=== PATIENT | male | born 1980 | race Caucasian/White ===

== ENCOUNTER → 2017-11-17 | Outpatient (CLI) | payer BC ==
[~2017-11-17] MED LIST: CETI10CA PO; FLT05NA16 NSEACH; HYDR-34 PO; HYDR-3583 PO; NF-ESOM40C
--- NOTE | 2017-11-17 10:00 | Diagnostic Imaging Report ---
PROCEDURE: MRI lumbar spine. TECHNIQUE: Multiplanar, multisequence MRI of the lumbar spine was performed without contrast. INDICATION: Low back pain FINDINGS: Alignment of the lumbar spine is normal. The vertebral body heights are well-maintained. There is no spondylolysis or spondylolisthesis. No fractures are identified. Conus medullaris is seen at L1, is normal in appearance. Overall, the patient has a somewhat congenitally small spinal canal. The T12-L1, L1-2, L2-3 and L3-4 discs are normal in height, signal intensity and morphology. At L4-5, there is broad-based annular bulging. There is also some increased T2 signal intensity within the posterior central annulus. There is mild central spinal stenosis with encroachment upon the lateral recesses bilaterally. There is mild bilateral neural foraminal encroachment. At L5-S1, there is broad-based annular bulging. There is again mild central spinal stenosis with encroachment upon the lateral recesses bilaterally, left greater than right. There is minimal neural foraminal encroachment. The abdominal aorta is nonaneurysmal. The kidneys are unremarkable. IMPRESSION: Broad-based annular bulging at L4-5 with resultant mild spinal stenosis and encroachment upon the lateral recess and mild bilateral foraminal encroachment. Additionally, there is increased T2 signal intensity within the posterior central anulus, likely reflecting annular tear. Mild degenerative disc disease at L5-S1. Dictated by: Dictated on workstation # [id number]
== END ==
LOC: RAD 08:01
PROVIDERS: ATTEND Orthopaedic Surgery
DX: M48.061 Spinal stenosis, lumbar region without neurogenic claudication (principal); M51.26 Other intervertebral disc displacement, lumbar region; M99.73 Connective tissue and disc stenosis of intervertebral foramina of lumbar region; M47.817 Spondylosis without myelopathy or radiculopathy, lumbosacral region
CPT/HCPCS: 72148

== ENCOUNTER → 2019-09-24 | Outpatient (CLI) | payer BC ==
--- NOTE | 2019-09-24 16:49 | Diagnostic Imaging Report ---
EXAM: MRI right thumb without contrast. DATE: September 24, 2019. INDICATION: 39-year-old male, right thumb injury. Difficulty extending the thumb. COMPARISON: None. TECHNIQUE: Multiple dedicated MRI sequences of the right thumb were obtained without contrast. FINDINGS: There is a complete tear at the terminal tendon insertion of the first digit extensor tendon at the dorsal aspect of the base of the first distal phalanx. The tendon is retracted proximally by 10.7 mm measured on sagittal PD fat saturation sequence image 7. There is mild flexion at the first interphalangeal joint. The more proximal aspects of the first extensor tendon are intact. The first digit flexor tendon is intact. There is no evidence of tenosynovitis. The radial and ulnar collateral ligaments at the levels of the first metacarpal phalangeal joint and first interphalangeal joint appear intact. The volar plates appear intact. There is no acute fracture, bone contusion or other bone marrow signal abnormality. There is subcutaneous edema at the level of the first digit. IMPRESSION: 1. Complete tear of the first digit extensor tendon at its terminal tendon insertion to the dorsal aspect of the base of the first distal phalanx with tendon retraction measuring 10.7 mm. There is mild flexion at the first interphalangeal joint. 2. Intact first digit flexor tendons. 3. Intact ligaments. 4. No acute fracture or bone contusion. Dictated by: Dictated on workstation # [id number]
== END ==
LOC: RAD 15:20
PROVIDERS: ATTEND Nurse Practitioner
DX: S56.32 Laceration of extensor or abductor muscles, fascia and tendons of thumb at forearm level (principal); S66.319A Strain of extensor muscle, fascia and tendon of unspecified finger at wrist and hand level, initial encounter
CPT/HCPCS: 73218